=== PATIENT | female | born 1950 | race Caucasian/White ===

== ENCOUNTER 2021-02-24 19:13 | Inpatient (IN) ==
[2021-02-24] MEDS ORDERED: NS 1000 ML 1,000 ML ONE (21:20)
[2021-02-24] MEDS ORDERED: HEPARIN SODIUM IN D5W 25,000 UNITS/500 ML BAG IV ONE (21:21)
[2021-02-24 21:23] LABS: BILIRUBIN,URINE NEGATIVE (NEGATIVE); BLOOD/HEMOGLOBIN,URINE NEGATIVE (NEGATIVE); GLUCOSE, URINE NEGATIVE (NEGATIVE); KETONES,URINE NEGATIVE (NEGATIVE); LEUKOCYTE ESTERASE ,URINE 3+ (NEGATIVE); NITRITES,URINE NEGATIVE (NEGATIVE); PROTEIN,URINE NEGATIVE (NEGATIVE); UROBILINOGEN,URINE NORMAL (NORMAL)
[2021-02-24 21:25] LABS: APPEARANCE,URINE CLEAR (CLEAR); COLOR,URINE YELLOW (YELLOW)
[2021-02-24 21:32] LABS: BACTERIA,URINE TRACE /HPF (NEGATIVE); RBC,URINE 0-2 /HPF (0-3); SQUAMOUS EPITHELIAL CELL,UR RARE /HPF (NEGATIVE)
[2021-02-24 21:35] LABS: BASOPHILS # (AUTO) 0.1 X10^3/uL (0.0-0.1); BASOPHILS % (AUTO) 0.8 % (0.2-1.0); EOSINOPHILS # (AUTO) 0.1 x10^3/uL (0.0-0.2); EOSINOPHILS % (AUTO) 1.3 % (0.9-2.9); HEMOGLOBIN 12.4 g/dL (12.0-16.0); LYMPHOCYTES # (AUTO) 2.3 X10^3/uL (1.3-2.9); LYMPHOCYTES % (AUTO) 22.2 % (21.0-51.0); MEAN CORPUSCULAR HEMOGLOBIN 29.3 pg (27.0-34.0); MEAN CORPUSCULAR HGB CONC 33.5 g/dL (33.0-35.0); MEAN CORPUSCULAR VOLUME 87.5 fL (80.0-100.0); MEAN PLATELET VOLUME 7.2 fL (7.4-11.0); MONOCYTES # (AUTO) 1.2 x10^3/uL (0.3-0.8); MONOCYTES % (AUTO) 11.2 % (0.0-13.0); NEUTROPHILS # (AUTO) 6.6 x10^3/uL (2.2-4.8); NEUTROPHILS % (AUTO) 64.5 % (42.0-75.0); PLATELET COUNT 320 X10^3/uL (150.0-450.0); RED BLOOD COUNT 4.23 X10^6/uL (3.5-5.4); RED CELL DISTRIBUTION WIDTH 15.2 % (11.6-16.5); WHITE BLOOD COUNT 10.2 X10^3/uL (3.6-10.0)
[2021-02-24 21:48] LABS: ALANINE AMINOTRANSFERASE 23 Units/L (12-78); ALBUMIN 3.6 g/dL (3.4-5.0); ALKALINE PHOSPHATASE 37 Units/L (46-116); ASPARTATE AMINO TRANSFERASE 18 Units/L (15-37); BLOOD UREA NITROGEN 13 mg/dL (7-18); CALCIUM 9.6 mg/dL (8.5-10.1); CARBON DIOXIDE 28.5 mmol/L (21-32); CHLORIDE 100 mmol/L (98-107); CREATININE 0.87 mg/dL (0.55-1.02); SODIUM 138 mmol/L (136-145); TOTAL PROTEIN 7.6 g/dL (6.4-8.2); eGFR NON BLACK RACES > 60 (>60)
[2021-02-24] MEDS ORDERED: HEPARIN SODIUM INJ 5000 UNITS IVP ONE (22:05)
[2021-02-24] MEDS ORDERED: HEPARIN SODIUM INJ 5000 UNITS ONE (22:07)
[2021-02-24] MEDS: HEPARIN SODIUM IN D5W 25,000 UNITS/500 ML BAG IV PRN (22:15)
[2021-02-24] MEDS: NS 1000 ML 1,000 ML IV SCH (22:30)
[2021-02-25 01:32] VITALS: BMI 26.6
--- NOTE | 2021-02-25 01:52 | CT ---
HISTORYDVT IN LEFT LEG, SOBSTUDYCTA CHESTCOMPARISONChest radiograph 02/25/2021TECHNIQUEMultiple axial images of the chest were obtained from the thoracic inlet to the upper abdomen after the administration of IV contrast. 3D reconstructions utilizing axial MIPS imaging was performed and reviewed. Dose reduction techniques including Automated Exposure Control (AEC) and adjustment of mA and kV were utilized.FINDINGSThe mediastinum does not demonstrate significant pathological lymphadenopathy. There is no paracardial effusion observed. The thoracic aorta is normal in its contour without evidence for aneurysmal dilatation. There are several filling defects within segmental and subsegmental pulmonary arteries supplying the right upper and right lower lobes. No thrombi are seen within the main pulmonary trunk or left or right main pulmonary artery. There is no evidence of right ventricular strain.Evaluation of the lung parenchyma fails to demonstrate focal consolidation or effusion . No pulmonary nodule or mass can be identified. The bony thorax is unremarkable in its appearance . The visualized portions of the upper abdomen are grossly unremarkable .IMPRESSIONAcute pulmonary embolic disease with several thrombi within segmental and subsegmental branches supplying the right upper and right lower lobes. Clot burden low.The availability of the report and findings were communicated to pt's ICU nurse by radiologist on 1:45 a.m. 02/25/2021lectronically signed by: Bill Dotson (Feb 25, 2021 01:49:49)
[2021-02-25 04:24] LABS: BASOPHILS # (AUTO) 0.1 X10^3/uL (0.0-0.1); BASOPHILS % (AUTO) 1.2 % (0.2-1.0); EOSINOPHILS # (AUTO) 0.1 x10^3/uL (0.0-0.2); EOSINOPHILS % (AUTO) 1.5 % (0.9-2.9); HEMATOCRIT 36.7 % (36.0-47.0); HEMOGLOBIN 12.3 g/dL (12.0-16.0); LYMPHOCYTES # (AUTO) 2.2 X10^3/uL (1.3-2.9); LYMPHOCYTES % (AUTO) 24.8 % (21.0-51.0); MEAN CORPUSCULAR HEMOGLOBIN 29.4 pg (27.0-34.0); MEAN CORPUSCULAR HGB CONC 33.6 g/dL (33.0-35.0); MEAN CORPUSCULAR VOLUME 87.5 fL (80.0-100.0); MEAN PLATELET VOLUME 7.7 fL (7.4-11.0); MONOCYTES % (AUTO) 11.9 % (0.0-13.0); NEUTROPHILS # (AUTO) 5.3 x10^3/uL (2.2-4.8); NEUTROPHILS % (AUTO) 60.6 % (42.0-75.0); PLATELET COUNT 331 X10^3/uL (150.0-450.0); RED BLOOD COUNT 4.19 X10^6/uL (3.5-5.4); RED CELL DISTRIBUTION WIDTH 14.9 % (11.6-16.5); WHITE BLOOD COUNT 8.7 X10^3/uL (3.6-10.0)
[2021-02-25 04:32] LABS: ALANINE AMINOTRANSFERASE 20 Units/L (12-78); ALBUMIN 3.1 g/dL (3.4-5.0); ALKALINE PHOSPHATASE 35 Units/L (46-116); ASPARTATE AMINO TRANSFERASE 16 Units/L (15-37); BLOOD UREA NITROGEN 10 mg/dL (7-18); CALCIUM 8.7 mg/dL (8.5-10.1); CARBON DIOXIDE 29.7 mmol/L (21-32); CHLORIDE 103 mmol/L (98-107); COR CA(FOR HYPOALB) 9.4 mg/dL (8.5-10.1); SODIUM 142 mmol/L (136-145); TOTAL PROTEIN 6.8 g/dL (6.4-8.2); eGFR NON BLACK RACES > 60 (>60)
--- NOTE | 2021-02-25 05:55 | RAD ---
HISTORYSOBSTUDYCHEST, 1 VIEWCOMPARISONNoneFINDINGSThe trachea is midline. The cardiac silhouette is unremarkable . The lungs are clear without focal infiltrate or effusion. The bony thorax is unremarkable.IMPRESSIONNo acute cardiopulmonary disease.Electronically signed by: Bill Dotson (Feb 25, 2021 05:53:29)
[2021-02-25] MEDS ORDERED: POTASSIUM CHLORIDE LIQ 20 MEQ UDC PO PRN (06:37)
[2021-02-25] MEDS ORDERED: POTASSIUM CHL 40 MEQ/NS 0.45% 500 ML IV PRN (06:37)
[2021-02-25] MEDS ORDERED: POTASSIUM CHL 60 MEQ/NS 0.45% 500 ML IV PRN (06:37)
[2021-02-25] MEDS ORDERED: KLOR-CON PO PRN (06:37)
[2021-02-25] MEDS ORDERED: K-DUR TAB 20 MEQ PO PRN (06:37)
[2021-02-25] MEDS ORDERED: MICRO K EXTEN CAP 10 MEQ PO PRN (06:37)
[2021-02-25] MEDS ORDERED: K-RIDER 10 MEQ/NS 100 ML 10 MEQ/100 ML BAG IV PRN (06:37)
[2021-02-25] MEDS ORDERED: MAGNESIUM SULFATE 1 GRAM/100 mL PREMIX 1 GM/100 ML BAG IV PRN (06:41)
[2021-02-25] MEDS ORDERED: MILK OF MAGNESIA PO PRN (09:28)
--- NOTE | 2021-02-25 09:57 | DR.H&P ---
H&P - History & Physical for Day of: H&P Date: 02/24/21 - Chief Complaint Chief Complaint: LEFT LEG PAIN, SWELLING, BURNING - History of Present Illness History of Present Illness: IS A 70 YEAR OLD PATIENT OF OURS WHO PRESENTED TO THE OFFICE WITH COMPLAINTS OF MODERATE LEFT LOWER EXTREMITY PAIN, SWELLING, AND A BURNING SENSATION. SYMPTOMS REPORTEDLY STARTED ON DAY PRIOR TO ARRIVAL. SHE ALSO COMPLAINS OF ASSOCIATED SHORTNESS OF BREATH. SHE WAS SENT FOR AN OUTPATIENT LOWER EXTREMITY DOPPLER WHICH REVEALED EXTENSIVE ACUTE DEEP VEIN THROMBOSIS OF THE LEFT LOWER EXTREMITY DEEP VEINS, INCLUDING THE ENTIRE SUPERFICIAL FEMORAL VEIN THROUGHOUT ITS LENGTH IN THE POPLITEAL VEIN WELL THE VISUALIZED POSTERIOR TIBIAL VEIN. COMMON FEMORAL VEIN REMAINS PATENT AND COMPRESSIBLE, THOUGH THE RESPIRATORY PHASICITY IS BLUNTED. MORE PROXIMAL THROMBUS NOT ENTIRELY EXCLUDED. PATIENT DENIES PERIODS OF PROLONGED IMMOBILIZATION OR RECENT SURGERY. SHE REPORTS THAT HER DAUGHTER DOES HAVE A CLOTTING DISORDER, FACTOR v LEIDEN. SHE WAS SENT TO THE HOSPITAL FOR DIRECT ADMISSION DUE TO LEFT LOWER EXTREMITY DVT AND SHORTNESS OF BREATH. ON ARRIVAL TO THE HOSPITAL, VITALS WERE 99.0-77-21-100%-134/80. LABS WERE OBTAINED. ABNORMAL LAB VALUES INCLUDE THE FOLLOWING: WBC 10.2, D-DIMER 4.41, ALK PHOS 37. A URINALYSIS WAS OBTAINED AND REVEALED: WBC 20-30, RBC 0-2, LEUKOCYTES 3+, BACTERIA TRACE. A URINE CULTURE WAS SET UP. A CHEST XRAY WAS OBTAINED AND REVEALED: NO ACUTE CARDIOPULMONARY DISEASE. A CHEST CTA WAS OBTAINED AND REVEALED: Acute pulmonary embolic disease with several thrombi within segmental and subsegmental branches supplying the right upper and right lower lobes. Clot burden low. SHE WAS STARTED ON NORMAL SALINE AT 75 ML/HR, A HEPARIN DRIP, ROCEPHIN 1G IV DAILY, THE POTASSIUM AND MAGNESIUM PROTOCOLS, AND HER HOME MEDICATIONS OF SENOKOT, ZETIA, AND VITAMIN D WERE RESUMED. WE PLAN TO OBTAIN A HYPERCOAGULABLE PANEL AND ECHOCARDIOGRAM. OTHERWISE, WE WILL FOLLOW UP WITH AM LABS AND CONTINUE TO MONITOR. TIME SPENT ON CLINICAL ASSESSMENT, REVIEWING LABS AND IMAGING, DECISION MAKING, AND DOCUMENTATION GREATER THAN 75 MINUTES. - Past Medical History Past Medical History: Anxiety Additional Medical History: PARKINSON'S DISEASE - Past Surgical History Surgical History: Other - Social History Does patient currently use any type of tobacco product: No Have you used tobacco products in the last 12 months: No Type of Tobacco Use: None How many years tobacco product used: 0 Does any household member use tobacco: No Alcohol Use: None - Medications Home Medications: nitrofurantoin [From Macrobid] Allergy (Verified 02/24/21 21:27) CONTINUE taking the following medications ergocalciferol (vitamin D2) 1,250 mcg PO QWEEK 02/24/21 [History] ezetimibe [Zetia] 10 mg PO DAILY 02/24/21 [History] triamterene-hydrochlorothiazid 1 cap PO DAILY 02/24/21 [History] - Review of Systems Constitutional: Weakness Eyes: No Symptoms Reported ENT: No Symptoms Reported Respiratory: Shortness of Breath Cardiovascular: No Symptoms Reported Gastrointestinal: Constipation (HX OF CHRONIC CONSTIPATION ) Genitourinary: No Symptoms Reported Musculoskeletal: Leg Pain (LEFT LEG PAIN AND SWELLING ) Skin: No Symptoms Reported Neurological: Weakness - Physical Exam Vital Signs: Temperature 98.9 F Pulse Rate [Apical] 64 Pulse Rate 94 Respiratory Rate 24 Blood Pressure [Left Arm] 98/63 Blood Pressure 116/56 O2 Sat by Pulse Oximetry 99 Oriented: Normal Eyes: Normal Ear: Normal Nose: Normal Throat: Normal Respiratory: Diminished Throughout Cardiovascular: Normal : Normal Auscultation: Bowel Sounds: Normal Palpation: Normal Tenderness: Normal Skin: Normal Musculoskeletal: Left, Leg, Swelling, Tender Psychiatric: Normal Mood Description: Calm Affect: Normal Speech Pattern: Clear - Assessment/Plan (1) Pulmonary embolism Qualifiers: Pulmonary embolism type: multiple subsegmental (without acute cor pulmonale) Qualified Code(s): I26.94 - Multiple subsegmental pulmonary emboli without acute cor pulmonale Status: Acute Plan: ADMIT, NORMAL SALINE AT 75 ML/HR, A HEPARIN DRIP, ROCEPHIN 1G IV DAILY, THE POTASSIUM AND MAGNESIUM PROTOCOLS, AND HER HOME MEDICATIONS OF SENOKOT, ZETIA, AND VITAMIN D WERE RESUMED. OBTAIN ECHO AND HYPERCOAG PANEL (2) DVT, lower extremity Qualifiers: Affected thrombotic vein of extremity: unspecified vein of extremity Chronicity: acute Laterality: left Qualified Code(s): I82.402 - Acute embolism and thrombosis of unspecified deep veins of left lower extremity Status: Acute (3) Urinary tract infection Qualifiers: Urinary tract infection type: site unspecified Hematuria presence: without hematuria Qualified Code(s): N39.0 - Urinary tract infection, site not specified Status: Acute - Allergies Allergies/Adverse Reactions: Allergies Allergy/AdvReac Type Severity Reaction Status Date / Time nitrofurantoin Allergy Verified 02/24/21 21:27 [From Macrobid]
[2021-02-25] MEDS ORDERED: MILK OF MAGNESIA PO SCH (10:00)
[2021-02-25] MEDS ORDERED: NS 500 ML IV 500 ML IV ONE (10:05)
[2021-02-25] MEDS: SENOKOT PO SCH (10:07)
[2021-02-25] MEDS: ROCEPHIN VIAL 1 GRAM 1 G in NS 100 ML IV + SPIKE MINIBAG* 100 ML IV SCH (10:07)
[2021-02-25] MEDS: ZETIA TAB 10 MG PO SCH (10:08)
[2021-02-25] MEDS: VITAMIN D (1.25MG) PO SCH ×2 (10:10→10:19)
[2021-02-25 10:59] LABS: ERYTHROCYTE SEDIMENTATION RATE 69 MM/HOUR (0-20)
[2021-02-25] MEDS ORDERED: HEPARIN SODIUM INJ 5000 UNITS ONE (17:39)
[2021-02-25] MEDS: NS 1000 ML 1,000 ML IV SCH (20:38)
[2021-02-25] MEDS ORDERED: COLACE CAP 100 MG PO SCH (21:00)
[2021-02-25] MEDS ORDERED: RESTORIL CAP 15 MG PO ONE (21:12)
[2021-02-25] MEDS: COLACE CAP 100 MG PO PRN (22:03)
[2021-02-25] MEDS: RESTORIL CAP 15 MG PO PRN (22:05)
[2021-02-26] MEDS: NS 1000 ML 1,000 ML IV SCH ×3 (03:32→23:06)
[2021-02-26] MEDS: HEPARIN SODIUM IN D5W 25,000 UNITS/500 ML BAG IV PRN (06:04)
[2021-02-26 08:01] LABS: BASOPHILS # (AUTO) 0.1 X10^3/uL (0.0-0.1); BASOPHILS % (AUTO) 1.3 % (0.2-1.0); EOSINOPHILS # (AUTO) 0.2 x10^3/uL (0.0-0.2); EOSINOPHILS % (AUTO) 2.5 % (0.9-2.9); HEMATOCRIT 37.4 % (36.0-47.0); HEMOGLOBIN 12.3 g/dL (12.0-16.0); LYMPHOCYTES % (AUTO) 25.8 % (21.0-51.0); MEAN CORPUSCULAR HEMOGLOBIN 29.1 pg (27.0-34.0); MEAN CORPUSCULAR HGB CONC 32.8 g/dL (33.0-35.0); MEAN CORPUSCULAR VOLUME 88.8 fL (80.0-100.0); MEAN PLATELET VOLUME 7.6 fL (7.4-11.0); MONOCYTES % (AUTO) 12.8 % (0.0-13.0); NEUTROPHILS # (AUTO) 4.4 x10^3/uL (2.2-4.8); NEUTROPHILS % (AUTO) 57.6 % (42.0-75.0); PLATELET COUNT 331 X10^3/uL (150.0-450.0); RED BLOOD COUNT 4.22 X10^6/uL (3.5-5.4); RED CELL DISTRIBUTION WIDTH 15.5 % (11.6-16.5); WHITE BLOOD COUNT 7.6 X10^3/uL (3.6-10.0)
[2021-02-26 08:14] LABS: ALANINE AMINOTRANSFERASE 21 Units/L (12-78); ALBUMIN 2.7 g/dL (3.4-5.0); ALKALINE PHOSPHATASE 33 Units/L (46-116); ASPARTATE AMINO TRANSFERASE 18 Units/L (15-37); BLOOD UREA NITROGEN 9 mg/dL (7-18); CALCIUM 8.4 mg/dL (8.5-10.1); CARBON DIOXIDE 29.3 mmol/L (21-32); CHLORIDE 109 mmol/L (98-107); COR CA(FOR HYPOALB) 9.4 mg/dL (8.5-10.1); CREATININE 0.74 mg/dL (0.55-1.02); SODIUM 145 mmol/L (136-145); TOTAL PROTEIN 6.3 g/dL (6.4-8.2); eGFR NON BLACK RACES > 60 (>60)
[2021-02-26] MEDS: ROCEPHIN VIAL 1 GRAM 1 G in NS 100 ML IV + SPIKE MINIBAG* 100 ML IV SCH (08:48)
[2021-02-26] MEDS: ZETIA TAB 10 MG PO SCH (08:49)
[2021-02-26] MEDS: SENOKOT PO SCH (08:49)
[2021-02-26] MEDS: ELIQUIS PO SCH ×2 (09:15→21:10)
--- NOTE | 2021-02-26 10:35 | PCM.PROG ---
Progress Note - Progress Note for Day of Date of Exam: 02/26/21 - Subjective Subjective: IS BEING TREATED FOR A PULMONARY EMBOLISM, LEFT LOWER EXTREMITY DVT, AND A URINARY TRACT INFECTION. TODAY, SHE IS ALERT AND ORIENTED, LYING IN BED ON MORNING ROUNDS. SHE CONTINUES WITH COMPLAINTS OF LEFT LOWER EXTREMITY PAIN, SWELLING, AND SHORTNESS OF BREATH AT TIMES. SHE ALSO REPORTS COMPLAINTS OF LEFT SIDED NECK PAIN AND JAW PAIN. ON EXAMINATION, HEART IS REGULAR IN RATE AND RHYTHM. BILATERAL LUNGS ARE NOTED WITH DIMINISHED LUNG SOUNDS THROUGHOUT. ABDOMEN IS ROUND, SOFT, AND NON-TENDER WITH NORMAL BOWEL SOUNDS NOTED IN ALL QUADRANTS. THERE IS NON-PITTING EDEMA NOTED TO THE LEFT LEG WITH TENDERNESS TO PALPATION. HER VITALS THIS MORNING ARE: 98.2-71-18-100%-128/70. LABS WERE OBTAINED. ABNORMAL LAB VALUES INCLUDE THE FOLLOWING: PTT 65.0, CHLORIDE 109, CALCIUM 8.4, ALK PHOS 33, TOTAL PROTIEN 6.3, ALBUMIN 2.7. HYPERCOAGULABLE PANEL IS PENDING. URINE CULTURE PENDING. AN ECHO WAS OBTAINED YESTERDAY AND REVEALED AN EJECTION FRACTION OF 64%. MODERATE AORTIC VALVE LEAFLET THICKENING WITH SCLEROSIS. MILD MITRAL VALVE LEAFLET THICKENING WITH SCLEROSIS. RVSP 26mmHg. SHE IS CURRENTLY RECEIVING NORMAL SALINE AT 75 ML/HR, A HEPARIN DRIP, ROCEPHIN 1G IV DAILY, THE POTASSIUM AND MAGNESIUM PROTOCOLS, AND HER HOME MEDICATIONS OF SENOKOT, ZETIA, AND VITAMIN D WERE RESUMED. TODAY, WE WILL START ELIQUIS 10MG PO BID AND DISCONTINUE THE HEPARIN DRIP. WE WILL OBTAIN AN LEFT UPPER EXTREMITY VENOUS DOPPLER, WITH INSTRUCTIONS FOR RADIOLOGY TO EXTEND STUDY UP INTO THE NECK. OTHERWISE, WE PLAN TO FOLLOW UP WITH AM LABS AND CONTINUE TO MONITOR. TIME SPENT ON CLINICAL ASSESSMENT, REVIEWING LABS AND IMAGING, DECISION MAKING, AND DOCUMENTATION GREATER THAN 45 MINUTES. - Past Medical Family Social History Past Med/Fam/Surg Hx: No changes since H&P Allergies: Allergies nitrofurantoin [From Macrobid] Allergy (Verified 02/24/21 21:27) - Review of Systems ROS: No change since H&P - Vital Signs and I&O's Vital Signs: Temperature 98.2 F Pulse Rate [Apical] 64 Pulse Rate 71 Respiratory Rate 33 Blood Pressure [Left Arm] 98/63 Blood Pressure 138/83 O2 Sat by Pulse Oximetry 100 Intake and Output: Intake & Output 02/23/21 02/24/21 02/25/21 02/26/21 11:59 11:59 11:59 11:59 Intake Total 454 / 454 3469 / 3469 Output Total 1600 / 1600 2525 / 2525 Balance -1146 / -1146 944 / 944 - Physical Exam Oriented: Normal Eyes: Normal Ear: Normal Nose: Normal Throat: Normal Respiratory: Generalized, Diminished Cardiovascular: Normal : Normal Auscultation: Bowel Sounds: Normal Palpation: Normal Tenderness: Normal Skin: Normal Musculoskeletal: Left, Leg, Swelling, Tender Psychiatric: Normal Mood Description: Calm Affect: Normal Speech Pattern: Clear, Appropriate - Laboratory and Diagnostics Result Diagrams: 02/26/21 07:46 02/26/21 07:46 Labs: 02/24/21 20:35 Urine,Clean Catch Urine Culture - Final Laboratory WBC 7.6 X10^3/uL (3.6-10.0) 02/26/21 07:46 RBC 4.22 X10^6/uL (3.5-5.4) 02/26/21 07:46 Hgb 12.3 g/dL (12.0-16.0) 02/26/21 07:46 Hct 37.4 % (36.0-47.0) 02/26/21 07:46 MCV 88.8 fL (80.0-100.0) 02/26/21 07:46 MCH 29.1 pg (27.0-34.0) 02/26/21 07:46 MCHC 32.8 g/dL (33.0-35.0) L 02/26/21 07:46 RDW 15.5 % (11.6-16.5) 02/26/21 07:46 Plt Count 331 X10^3/uL (150.0-450.0) 02/26/21 07:46 MPV 7.6 fL (7.4-11.0) 02/26/21 07:46 Neut % (Auto) 57.6 % (42.0-75.0) 02/26/21 07:46 Lymph % (Auto) 25.8 % (21.0-51.0) 02/26/21 07:46 [place] % (Auto) 12.8 % (0.0-13.0) 02/26/21 07:46 Eos % (Auto) 2.5 % (0.9-2.9) 02/26/21 07:46 Baso % (Auto) 1.3 % (0.2-1.0) H 02/26/21 07:46 Neut # (Auto) 4.4 x10^3/uL (2.2-4.8) 02/26/21 07:46 Lymph # (Auto) 2.0 X10^3/uL (1.3-2.9) 02/26/21 07:46 [place] # (Auto) 1.0 x10^3/uL (0.3-0.8) H 02/26/21 07:46 Eos # (Auto) 0.2 x10^3/uL (0.0-0.2) 02/26/21 07:46 Baso # (Auto) 0.1 X10^3/uL (0.0-0.1) 02/26/21 07:46 Absolute Nucleated RBC 0.1 /100WBC 02/26/21 07:46 ESR 69 MM/HOUR (0-20) H 02/25/21 09:48 PT 14.2 SECONDS (11.8-14.3) 02/24/21 21:23 INR Target Range - 02/24/21 21:23 INR 1.15 (0.8-1.3) 02/24/21 21:23 APTT 65.0 SECONDS (22.9-36.5) H 02/26/21 07:46 PTT Comment - 02/26/21 07:46 D-Dimer 4.41 ug/ml (0.0-0.57) H* 02/24/21 21:23 Sodium 145 mmol/L (136-145) 02/26/21 07:46 Corrected Sodium TNP 02/26/21 07:46 Potassium 3.6 mmol/L (3.5-5.1) 02/26/21 07:46 Chloride 109 mmol/L (98-107) H 02/26/21 07:46 Carbon Dioxide 29.3 mmol/L (21-32) 02/26/21 07:46 BUN 9 mg/dL (7-18) 02/26/21 07:46 Creatinine 0.74 mg/dL (0.55-1.02) 02/26/21 07:46 Est GFR (MDRD) Af Amer > 60 (>60) 02/26/21 07:46 Est GFR (MDRD) Non-Af > 60 (>60) 02/26/21 07:46 Glucose 90 mg/dL (65-99) 02/26/21 07:46 Calcium 8.4 mg/dL (8.5-10.1) L 02/26/21 07:46 Corrected Calcium 9.4 mg/dL (8.5-10.1) 02/26/21 07:46 Magnesium 2.0 mg/dL (1.7-2.9) 02/25/21 03:55 Total Bilirubin 0.20 mg/dL (0.2-1.0) 02/26/21 07:46 AST 18 Units/L (15-37) 02/26/21 07:46 ALT 21 Units/L (12-78) 02/26/21 07:46 Alkaline Phosphatase 33 Units/L (46-116) L 02/26/21 07:46 C-Reactive Protein 35.00 mg/L (0-3.0) H 02/25/21 09:48 Total Protein 6.3 g/dL (6.4-8.2) L 02/26/21 07:46 Albumin 2.7 g/dL (3.4-5.0) L 02/26/21 07:46 Globulin 3.6 g/dL (2.5-4.5) 02/26/21 07:46 Albumin/Globulin Ratio 0.8 Ratio (1.1-2.1) L 02/26/21 07:46 Specimen Type Clean catch urine 02/24/21 20:35 Urine Color Yellow (YELLOW) 02/24/21 20:35 Urine Appearance Clear (CLEAR) 02/24/21 20:35 Urine pH 7.0 (5.0 - 8.0) 02/24/21 20:35 Ur Specific [place] 1.010 (1.000-1.030) 02/24/21 20:35 Urine Protein Negative (NEGATIVE) 02/24/21 20:35 Urine Glucose (UA) Negative (NEGATIVE) 02/24/21 20:35 Urine Ketones Negative (NEGATIVE) 02/24/21 20:35 Urine Occult Blood Negative (NEGATIVE) 02/24/21 20:35 Urine Nitrite Negative (NEGATIVE) 02/24/21 20:35 Urine Bilirubin Negative (NEGATIVE) 02/24/21 20:35 Urine Urobilinogen Normal (NORMAL) 02/24/21 20:35 Ur Leukocyte Esterase 3+ (NEGATIVE) 02/24/21 20:35 Urine RBC 0-2 /HPF (0-3) 02/24/21 20:35 Urine WBC 20-30 /HPF (0-5) A 02/24/21 20:35 Ur Squamous Epith Cells Rare /HPF (NEGATIVE) 02/24/21 20:35 Urine Bacteria Trace /HPF (NEGATIVE) 02/24/21 20:35 Ur Culture Indicated? Yes/culture set up 02/24/21 20:35 SARS CoV-2 RNA Rapid LEEANN Negative (NEGATIVE) 02/24/21 19:34 - Plan (1) Pulmonary embolism Status: Acute Qualifiers: Pulmonary embolism type: multiple subsegmental (without acute cor pulmonale) Qualified Code(s): I26.94 - Multiple subsegmental pulmonary emboli without acute cor pulmonale Plan: NORMAL SALINE AT 75 ML/HR, ELIQUIS 10MG PO BID, ROCEPHIN 1G IV DAILY, THE POTASSIUM AND MAGNESIUM PROTOCOLS, AND HER HOME MEDICATIONS OF SENOKOT, ZETIA, AND VITAMIN D WERE RESUMED. OBTAIN ECHO AND HYPERCOAG PANEL (2) DVT, lower extremity Status: Acute Qualifiers: Affected thrombotic vein of extremity: unspecified vein of extremity Chronicity: acute Laterality: left Qualified Code(s): I82.402 - Acute embolism and thrombosis of unspecified deep veins of left lower extremity (3) Urinary tract infection Status: Acute Qualifiers: Urinary tract infection type: site unspecified Hematuria presence: without hematuria Qualified Code(s): N39.0 - Urinary tract infection, site not specified
--- NOTE | 2021-02-26 11:15 | VAS ---
HISTORYHX PE AND DVT LTExtremity pain, swelling, and edema.Study: Left upper extremity Doppler venous ultrasound.Comparison: None available.TECHNIQUE: Multiple kamara scale and color flow Doppler images of the deep venous system were obtained of the left upper extremity.FINDINGS:The deep venous system of the left upper extremity evaluated from the level of the internal jugular vein through the [radial and ulnar veins]. Normal color flow and augmentation can be observed. In addition, normal compression is seen throughout the upper extremity deep venous system. [No soft tissue hematoma is seen.]IMPRESSION:1. Negative examination for DVT.Electronically signed by: PAMELA SPICER III (Feb 26, 2021 11:12:44)
[2021-02-26] MEDS: COLACE CAP 100 MG PO PRN (21:09)
[2021-02-26] MEDS: RESTORIL CAP 15 MG PO PRN (21:10)
[2021-02-27] MEDS: NS 1000 ML 1,000 ML IV SCH (05:14)
[2021-02-27 05:22] LABS: BASOPHILS # (AUTO) 0.1 X10^3/uL (0.0-0.1); BASOPHILS % (AUTO) 1.8 % (0.2-1.0); EOSINOPHILS # (AUTO) 0.2 x10^3/uL (0.0-0.2); EOSINOPHILS % (AUTO) 2.4 % (0.9-2.9); HEMATOCRIT 34.3 % (36.0-47.0); HEMOGLOBIN 11.1 g/dL (12.0-16.0); LYMPHOCYTES # (AUTO) 2.3 X10^3/uL (1.3-2.9); LYMPHOCYTES % (AUTO) 31.2 % (21.0-51.0); MEAN CORPUSCULAR HEMOGLOBIN 28.8 pg (27.0-34.0); MEAN CORPUSCULAR HGB CONC 32.3 g/dL (33.0-35.0); MEAN CORPUSCULAR VOLUME 89.3 fL (80.0-100.0); MEAN PLATELET VOLUME 8.2 fL (7.4-11.0); MONOCYTES # (AUTO) 0.9 x10^3/uL (0.3-0.8); MONOCYTES % (AUTO) 12.2 % (0.0-13.0); NEUTROPHILS # (AUTO) 3.9 x10^3/uL (2.2-4.8); NEUTROPHILS % (AUTO) 52.4 % (42.0-75.0); PLATELET COUNT 332 X10^3/uL (150.0-450.0); RED BLOOD COUNT 3.84 X10^6/uL (3.5-5.4); RED CELL DISTRIBUTION WIDTH 15.5 % (11.6-16.5); WHITE BLOOD COUNT 7.4 X10^3/uL (3.6-10.0)
[2021-02-27 05:28] LABS: ALANINE AMINOTRANSFERASE 20 Units/L (12-78); ALBUMIN 2.3 g/dL (3.4-5.0); ALKALINE PHOSPHATASE 28 Units/L (46-116); ASPARTATE AMINO TRANSFERASE 17 Units/L (15-37); BLOOD UREA NITROGEN 11 mg/dL (7-18); CALCIUM 8.3 mg/dL (8.5-10.1); CARBON DIOXIDE 26.5 mmol/L (21-32); CHLORIDE 111 mmol/L (98-107); COR CA(FOR HYPOALB) 9.7 mg/dL (8.5-10.1); CREATININE 0.69 mg/dL (0.55-1.02); SODIUM 145 mmol/L (136-145); TOTAL PROTEIN 5.5 g/dL (6.4-8.2); eGFR NON BLACK RACES > 60 (>60)
[2021-02-27] MEDS: ELIQUIS PO SCH (09:27)
[2021-02-27] MEDS: ROCEPHIN VIAL 1 GRAM 1 G in NS 100 ML IV + SPIKE MINIBAG* 100 ML IV SCH (09:28)
[2021-02-27] MEDS: ZETIA TAB 10 MG PO SCH (09:29)
[2021-02-27] MEDS: SENOKOT PO SCH (09:43)
[2021-02-27 12:24] VITALS: BP 138/82
[2021-03-01 07:27] LABS: ANTI-NUCLEAR ANTIBODY TEST None Detected (None Detected); PROTEIN C ACTIVITY 158 % (83-168)
[2021-03-03 09:35] LABS: PROTHROMBIN G20210A Negative
[2021-03-03 09:43] LABS: THROMBIN TIME 144.9
[2021-03-03 09:44] LABS: PTT-D HEPARIN NEUT 38; REPTILASE TIME 16.4
[2021-03-05] MEDS ORDERED: ELIQUIS PO SCH (09:00)
== END 2021-02-27 13:26 | disposition home or self-care (01) | DRG 176 ==
LOC: ICU 19:15
PROVIDERS: ADMIT Internal Medicine; ATTEND Internal Medicine
DX: R06.02 Shortness of breath; N39.0 Urinary tract infection, site not specified; R79.82 Elevated C-reactive protein (CRP); Z20.822 Contact with and (suspected) exposure to COVID-19; R94.31 Abnormal electrocardiogram [ECG] [EKG]; I26.94 Multiple subsegmental thrombotic pulmonary emboli without acute cor pulmonale; Z79.01 Long term (current) use of anticoagulants; I82.412 Acute embolism and thrombosis of left femoral vein; R26.89 Other abnormalities of gait and mobility; I82.432 Acute embolism and thrombosis of left popliteal vein; R70.0 Elevated erythrocyte sedimentation rate; G20 Parkinson's disease